=== PATIENT | male | born 1950 | race Caucasian/White ===

== ENCOUNTER 2016-12-29 11:44 | Inpatient (IN) | payer BC ==
[~2016-12-29] VITALS: Ht 167.6 cm; Wt 94.3 kg
[~2016-12-29 11:44] MED LIST: ALEVE 220MG220 MG PO; ALTOPREV10 MG PO; ASPIR-LOW81 MG PO; ASPIRIN 32325 MG/TAB PO; ASPIRIN 81M81 MG/TA2 PO; BRILINTA90 MG PO; BYSTOLIC5 MG PO; CARDI-OMEGA1000 MG PO; CHROMIUM PICO200 MCG PO; CINNAMON500 MG PO; CO Q-1050 MG PO; EFFIENT10 MG PO; FLAX SEED OIL1000 MG PO; GLUCOPHAGE500 MG/TAB PO; GLUCOSAMINE; GLUCOSAMINE & C1 CA2 PO; LIPITOR 80MG80 MG PO; LOPRESSOR 225 MG/TAB PO; LORTAB 5/500 501 TAB PO; MULTIPLE VITAMI1 CAP PO; MVI; NITROSTAT0.3 MG; NITROSTAT0.4 MG/TAB SL; PRILOSEC 20MG20 MG PO; PRINIVIL5 MG PO; VITAMIN D2000 I1 PO
[2017-01-26] VITALS (12 sets, daily range): BP systolic 121–148; BP diastolic 59–72; PULSE 76–96; TEMP 97.8–98.4
[2017-01-26] MEDS ORDERED: GLUCOPHAGE1000 MG PO (07:36)
[2017-01-26] MEDS ORDERED: ASPIRIN E.C. 8181 MG PO (07:37)
[2017-01-26] MEDS ORDERED: FLAX OIL1000 MG PO (07:38)
[2017-01-26] MEDS ORDERED: BRILINTA90 MG PO (07:40)
[2017-01-26] MEDS ORDERED: BYSTOLIC5 MG PO (07:41)
[2017-01-26] MEDS ORDERED: PRINIVIL5 MG PO (07:42)
[2017-01-26] MEDS ORDERED: VITAMIN D32000 IU PO (07:43)
[2017-01-26] MEDS ORDERED: MASON NATURAL100 MG PO (07:43)
[2017-01-26] MEDS ORDERED: GLUCOSAMINE & C1 CA1 PO (07:44)
[2017-01-26] MEDS ORDERED: PRILOSEC 20MG20 MG PO (07:44)
[2017-01-26] MEDS ORDERED: LIPITOR 40MG TA40 MG PO (07:45)
[2017-01-26] MEDS ORDERED: MASON NATURAL1200 MG PO (07:46)
[2017-01-26] MEDS ORDERED: NITROSTAT0.4 MG/TAB SL (07:47)
[2017-01-26] MEDS ORDERED: REVATIO20 MG PO (07:50)
[2017-01-26 18:18] LABS: HEMATOCRIT 42.1 % (42.0-52.0); HEMOGLOBIN 14.5 g/dl (13.5-18.0)
[2017-01-27] VITALS (7 sets, daily range): BP systolic 103–150; BP diastolic 55–79; PULSE 75–102; TEMP 98–98.8
[2017-01-27 07:35] LABS: CALCIUM 8.7 mg/dL (8.4-10.2); CREATININE, serum 0.81 mg/dL (0.66-1.25); POTASSIUM 4.3 mmol/L (3.4-5.0)
[2017-01-27 07:36] LABS: HEMATOCRIT 39.4 % (42.0-52.0); HEMOGLOBIN 13.4 g/dl (13.5-18.0)
[2017-01-28 05:43] VITALS: BP 143/90; PULSE 106; TEMP 98.6
[2017-01-28 09:33] VITALS: BP 148/90; PULSE 121; TEMP 97.9
[2017-01-28 12:02] LABS: HEMATOCRIT 43.4 % (42.0-52.0); HEMOGLOBIN 14.8 g/dl (13.5-18.0); MEAN CELL VOLUME 90 fl (80.0-100.0); MEAN CORPUSCULAR HEMOGLOBIN 31 pg (27.0-31.0); MEAN CORPUSCULAR HGB CONC 34 g/dl (33.0-37.0); MEAN PLATELET VOLUME 10.3 fl (7.4-10.4); PLATELET COUNT 249 K/mm3 (130-400); RED BLOOD COUNT 4.81 M/mm3 (4.20-5.60)
[2017-01-28 12:03] LABS: WHITE BLOOD COUNT 21.5 K/mm3 (4.8-10.8)
[2017-01-28 12:04] LABS: ADD PATHOLOGY DIFF REVIEW NO
[2017-01-28 12:25] LABS: CALCIUM 9.6 mg/dL (8.4-10.2); CREATININE, serum 0.68 mg/dL (0.66-1.25); POTASSIUM 4.1 mmol/L (3.4-5.0)
[2017-01-28 12:28] LABS: BAND 18 % (0-10); NEUTROPHILS 74 % (42.0-75.2); PLATELET ESTIMATE NORMAL (NORMAL); TOTAL CELLS COUNTED 100
[2017-01-28 14:13] VITALS: BP 124/69; PULSE 92; TEMP 98
[2017-01-28 18:39] VITALS: BP 118/68; PULSE 85; TEMP 98.5
[2017-01-28 22:23] VITALS: BP 127/71; PULSE 98; TEMP 99.5
[2017-01-29] VITALS (295 sets, daily range): BP systolic 73–110; BP diastolic 44–75; PULSE 100–134; TEMP 97–98.8; O2SAT 89–100
[2017-01-29 06:53] LABS: HEMATOCRIT 44.9 % (42.0-52.0); HEMOGLOBIN 15.5 g/dl (13.5-18.0); MEAN CELL VOLUME 89 fl (80.0-100.0); MEAN CORPUSCULAR HEMOGLOBIN 31 pg (27.0-31.0); MEAN CORPUSCULAR HGB CONC 35 g/dl (33.0-37.0); MEAN PLATELET VOLUME 10.6 fl (7.4-10.4); PLATELET COUNT 308 K/mm3 (130-400); RED BLOOD COUNT 5.02 M/mm3 (4.20-5.60); WHITE BLOOD COUNT 5.5 K/mm3 (4.8-10.8)
[2017-01-29 06:58] LABS: CALCIUM 9.2 mg/dL (8.4-10.2); CREATININE, serum 1.1 mg/dL (0.66-1.25)
[2017-01-29 07:56] LABS: BAND 49 % (0-10); METAMYELOCYTE 4 % (0-0); NEUTROPHILS 33 % (42.0-75.2); PLATELET ESTIMATE NORMAL (NORMAL); TOTAL CELLS COUNTED 100
[2017-01-29 08:01] LABS: DOHLE BODIES PRESENT
[2017-01-29 08:02] LABS: TOXIC GRANULATION PRESENT
[2017-01-29 08:05] LABS: ADD PATHOLOGY DIFF REVIEW YES
[2017-01-29 15:35] LABS: HYALINE CAST >12 /lpf; PH 5 (5-8); SQUAMOUS EPITHELIAL 0-2 /hpf; URINE APPEARANCE Hazy; URINE BACTERIA None Seen /hpf; URINE BILIRUBIN Negative (NEGATIVE); URINE BLOOD Negative (NEGATIVE); URINE COLOR Amber; URINE GLUCOSE 1+ (NEGATIVE); URINE KETONE Trace (NEGATIVE); URINE UROBILINOGEN >=4.0 mg/dL (NEGATIVE)
[2017-01-29 15:38] LABS: HEMATOCRIT 43.3 % (42.0-52.0); HEMOGLOBIN 14.4 g/dl (13.5-18.0)
[2017-01-29 18:44] LABS: VENOUS BLOOD GAS BE -13.7 (-4-4); VENOUS BLOOD GAS SAO2 82.3 % (60-80)
[2017-01-29 18:45] LABS: VENOUS BLOOD GAS SITE CENTRAL LINE
[2017-01-29 19:04] LABS: ARTERIAL BLD GAS TCO2 CT 18.1; ARTERIAL BLOOD GAS BASE EXCESS -13.4 (-2-2); ARTERIAL BLOOD GAS HCO3 16.4 meq/L (22-26); ARTERIAL BLOOD GAS PO2 90.9 mmHg (80-100); ATS? NO
[2017-01-29 19:32] LABS: HEMATOCRIT 39.1 % (42.0-52.0); MEAN CELL VOLUME 92 fl (80.0-100.0); MEAN CORPUSCULAR HEMOGLOBIN 31 pg (27.0-31.0); MEAN CORPUSCULAR HGB CONC 33 g/dl (33.0-37.0); MEAN PLATELET VOLUME 10.1 fl (7.4-10.4); PLATELET COUNT 285 K/mm3 (130-400); RED BLOOD COUNT 4.23 M/mm3 (4.20-5.60); REDCELL DISTRIBUTION WIDTH-CV 13.2 % (11.5-14.5); WHITE BLOOD COUNT 5.1 K/mm3 (4.8-10.8)
[2017-01-29 19:48] LABS: ADJUSTED CALCIUM 7.8 mg/dL (8.4-10.2); ALBUMIN 2.1 gm/dL (3.5-5.0); BILIRUBIN,TOTAL 1.2 mg/dL (0.0-1.0); CALCIUM 6.3 mg/dL (8.4-10.2); CREATININE, serum 1.88 mg/dL (0.66-1.25); POTASSIUM 4.2 mmol/L (3.4-5.0); TOTAL PROTEIN 4.6 gm/dL (6.4-8.2)
[2017-01-29 20:08] LABS: BAND 45 % (0-10); METAMYELOCYTE 2 % (0-0); NEUTROPHILS 16 % (42.0-75.2); TOTAL CELLS COUNTED 100
[2017-01-29 20:09] LABS: PLATELET ESTIMATE NORMAL (NORMAL)
[2017-01-29 20:12] LABS: ARTERIAL BLOOD GAS PO2 73.6 mmHg (80-100); ARTERIAL BLOOD GAS pH 7.31 (7.35-7.45)
[2017-01-29 20:13] LABS: ARTERIAL BLOOD GAS BASE EXCESS -10.6 (-2-2); ARTERIAL BLOOD GAS HCO3 14.2 meq/L (22-26); ATS? NO
[2017-01-29 22:20] LABS: ARTERIAL BLOOD GAS HCO3 13.8 meq/L (22-26); ARTERIAL BLOOD GAS PO2 148.2 mmHg (80-100); ARTERIAL BLOOD GAS pH 7.36 (7.35-7.45)
[2017-01-29 22:21] LABS: ARTERIAL BLD GAS O2 SATURATION 98.4 % (92-100); ARTERIAL BLD GAS TCO2 CT 14.5; ARTERIAL BLOOD GAS BASE EXCESS -9.9 (-2-2); ATS? NO
[2017-01-29 23:05] LABS: VENOUS BLOOD GAS BE -8.8 (-4-4); VENOUS BLOOD GAS SAO2 59.1 % (60-80); VENOUS BLOOD GAS SITE CENTRAL LINE
[2017-01-30] VITALS (642 sets, daily range): BP systolic 83–125; BP diastolic 36–74; PULSE 103–134; TEMP 97–99.8; O2SAT 92–100
[2017-01-30 03:19] LABS: VENOUS BLOOD GAS BE -6.1 (-4-4); VENOUS BLOOD GAS SAO2 64.3 % (60-80); VENOUS BLOOD GAS SITE CENTRAL LINE
[2017-01-30 05:02] LABS: ARTERIAL BLD GAS O2 SATURATION 97.9 % (92-100); ARTERIAL BLD GAS TCO2 CT 18.7; ARTERIAL BLOOD GAS BASE EXCESS -5.4 (-2-2); ARTERIAL BLOOD GAS HCO3 17.8 meq/L (22-26); ARTERIAL BLOOD GAS PO2 118.7 mmHg (80-100); ARTERIAL BLOOD GAS pH 7.42 (7.35-7.45)
[2017-01-30 05:03] LABS: ATS? NO
[2017-01-30 05:45] LABS: HEMOGLOBIN 12.2 g/dl (13.5-18.0); MEAN CELL VOLUME 89 fl (80.0-100.0); MEAN CORPUSCULAR HEMOGLOBIN 31 pg (27.0-31.0); MEAN CORPUSCULAR HGB CONC 35 g/dl (33.0-37.0); MEAN PLATELET VOLUME 10.3 fl (7.4-10.4); PLATELET COUNT 262 K/mm3 (130-400); RED BLOOD COUNT 3.96 M/mm3 (4.20-5.60); REDCELL DISTRIBUTION WIDTH-CV 13.2 % (11.5-14.5); WHITE BLOOD COUNT 5.9 K/mm3 (4.8-10.8)
[2017-01-30 05:47] LABS: HEMATOCRIT 35.1 % (42.0-52.0)
[2017-01-30 05:48] LABS: ADD PATHOLOGY DIFF REVIEW NO
[2017-01-30 05:58] LABS: ADJUSTED CALCIUM 8.4 mg/dL (8.4-10.2); ALANINE AMINOTRANSFERASE 75 U/L (21-72); ALBUMIN 2.7 gm/dL (3.5-5.0); ALKALINE PHOSPHATASE 75 U/L (50-136); ANION GAP 18 mmol/L (7-16); BILIRUBIN,TOTAL 1.1 mg/dL (0.0-1.0); BLOOD UREA NITROGEN 32 mg/dL (9-20); CALCIUM 7.4 mg/dL (8.4-10.2); CARBON DIOXIDE 20 mmol/L (22-30); CHLORIDE 104 mmol/L (98-107); GLUCOSE 175 mg/dL (74-106); MAGNESIUM 1.4 mg/dL (1.6-2.3); PHOSPHOROUS 3.2 mg/dL (2.5-4.5); POTASSIUM 3.6 mmol/L (3.4-5.0); SODIUM 142 mmol/L (137-145)
[2017-01-30 06:05] LABS: B-TYPE NATRIURETIC PEPTIDE 4620 pg/mL (0-125)
[2017-01-30 06:13] LABS: BAND 41 % (0-10); EOSINOPHIL 1 % (0-4); NEUTROPHILS 27 % (42.0-75.2); TOTAL CELLS COUNTED 100
[2017-01-30 08:51] LABS: INR 1.7 (0.8-3.0); PROTHROMBIN TIME 18.6 SECONDS (9.7-12.8)
[2017-01-30 10:01] LABS: VENOUS BLOOD GAS BE -2.2 (-4-4); VENOUS BLOOD GAS SAO2 75.2 % (60-80); VENOUS BLOOD GAS SITE CENTRAL LINE
[2017-01-30 12:05] LABS: VENOUS BLOOD GAS BE -8.7 (-4-4); VENOUS BLOOD GAS SAO2 74.8 % (60-80)
[2017-01-30 12:06] LABS: VENOUS BLOOD GAS SITE CENTRAL LINE
[2017-01-30 13:31] LABS: TRIGLYCERIDE 67 mg/dL
[2017-01-30 13:35] LABS: CHOLESTEROL < 50 mg/dL (120-200)
[2017-01-30 19:30] LABS: VENOUS BLOOD GAS BE -2.9 (-4-4); VENOUS BLOOD GAS SAO2 73.6 % (60-80)
[2017-01-30 19:31] LABS: VENOUS BLOOD GAS SITE CENTRAL LINE
[2017-01-30 19:32] LABS: BASO % 0.6 % (0.0-2.0); EOS % 0.3 % (0-4.0); GRAN # 5.3 (1.4-6.5); GRAN % 79.6 % (42.2-75.2); LYMPH # 0.7 (1.2-3.4); MEAN CELL VOLUME 90 fl (80.0-100.0); MEAN CORPUSCULAR HGB CONC 34 g/dl (33.0-37.0); MEAN PLATELET VOLUME 10.1 fl (7.4-10.4); MONO # 0.5 (0.1-0.6); PLATELET COUNT 213 K/mm3 (130-400); RED BLOOD COUNT 3.34 M/mm3 (4.20-5.60); REDCELL DISTRIBUTION WIDTH-CV 13.3 % (11.5-14.5); WHITE BLOOD COUNT 6.6 K/mm3 (4.8-10.8)
[2017-01-30 19:33] LABS: HEMATOCRIT 29.9 % (42.0-52.0); HEMOGLOBIN 10.2 g/dl (13.5-18.0); MEAN CORPUSCULAR HEMOGLOBIN 31 pg (27.0-31.0)
[2017-01-30 19:43] LABS: ALBUMIN 2.8 gm/dL (3.5-5.0); BILIRUBIN,TOTAL 1.2 mg/dL (0.0-1.0); CREATININE, serum 1.47 mg/dL (0.66-1.25); POTASSIUM 3.5 mmol/L (3.4-5.0); TOTAL PROTEIN 5.1 gm/dL (6.4-8.2)
[2017-01-31] VITALS (813 sets, daily range): BP systolic 85–154; BP diastolic 49–83; PULSE 90–158; TEMP 38; O2SAT 70–100
[2017-01-31 04:09] LABS: ARTERIAL BLD GAS O2 SATURATION 93.9 % (92-100); ARTERIAL BLD GAS TCO2 CT 23.6; ARTERIAL BLOOD GAS HCO3 22.3 meq/L (22-26); ARTERIAL BLOOD GAS PHT 7.35 C (7.35-7.45); ARTERIAL BLOOD GAS PO2 76.6 mmHg (80-100); ARTERIAL BLOOD GAS PO2T 76.6 (80-100); ARTERIAL BLOOD GAS pH 7.35 (7.35-7.45); OXYHEMOGLOBIN 92.9 %
[2017-01-31 04:22] LABS: ALLEN TEST NO; ATS? NO
[2017-01-31 05:39] LABS: MEAN CELL VOLUME 90 fl (80.0-100.0); MEAN CORPUSCULAR HGB CONC 34 g/dl (33.0-37.0); MEAN PLATELET VOLUME 10.5 fl (7.4-10.4); PLATELET COUNT 219 K/mm3 (130-400); RED BLOOD COUNT 3.11 M/mm3 (4.20-5.60); REDCELL DISTRIBUTION WIDTH-CV 13.7 % (11.5-14.5); WHITE BLOOD COUNT 10.2 K/mm3 (4.8-10.8)
[2017-01-31 05:47] LABS: ADD PATHOLOGY DIFF REVIEW NO; HEMATOCRIT 28.1 % (42.0-52.0); HEMOGLOBIN 9.5 g/dl (13.5-18.0); MEAN CORPUSCULAR HEMOGLOBIN 31 pg (27.0-31.0)
[2017-01-31 05:51] LABS: MAGNESIUM 1.9 mg/dL (1.6-2.3); PHOSPHOROUS 2.9 mg/dL (2.5-4.5)
[2017-01-31 05:52] LABS: INR 1.4 (0.8-3.0); PROTHROMBIN TIME 15.6 SECONDS (9.7-12.8)
[2017-01-31 06:25] LABS: BAND 19 % (0-10); NEUTROPHILS 71 % (42.0-75.2); TOTAL CELLS COUNTED 100
[2017-01-31 08:17] LABS: VENOUS BLOOD GAS BE -2.6 (-4-4); VENOUS BLOOD GAS SAO2 72.1 % (60-80); VENOUS BLOOD GAS SITE CENTRAL LINE
[2017-01-31 08:30] LABS: ADJUSTED CALCIUM 7.9 mg/dL (8.4-10.2); CALCIUM 7.1 mg/dL (8.4-10.2); CREATININE, serum 1.95 mg/dL (0.66-1.25); POTASSIUM 3.5 mmol/L (3.4-5.0); TOTAL PROTEIN 5.2 gm/dL (6.4-8.2)
[2017-01-31 20:38] LABS: VENOUS BLOOD GAS BE -2.1 (-4-4); VENOUS BLOOD GAS SAO2 68.3 % (60-80)
[2017-01-31 20:39] LABS: VENOUS BLOOD GAS SITE CENTRAL LINE
[2017-02-01] VITALS (1257 sets, daily range): BP systolic 110–166; BP diastolic 52–90; PULSE 88–100; TEMP 98.4–100.4; O2SAT 65–100
[2017-02-01 04:07] LABS: ARTERIAL BLD GAS O2 SATURATION 89.4 % (92-100); ARTERIAL BLD GAS TCO2 CT 20.3; ARTERIAL BLOOD GAS BASE EXCESS -4.8 (-2-2); ARTERIAL BLOOD GAS HCO3 19.3 meq/L (22-26); ARTERIAL BLOOD GAS PO2 61.3 mmHg (80-100); ARTERIAL BLOOD GAS PO2T 61.3 (80-100); OXYHEMOGLOBIN 88.4 %
[2017-02-01 04:09] LABS: ALLEN TEST NO; ATS? NO
[2017-02-01 04:38] LABS: MEAN CELL VOLUME 89 fl (80.0-100.0); MEAN CORPUSCULAR HGB CONC 34 g/dl (33.0-37.0); MEAN PLATELET VOLUME 10.5 fl (7.4-10.4); PLATELET COUNT 206 K/mm3 (130-400); RED BLOOD COUNT 2.88 M/mm3 (4.20-5.60); WHITE BLOOD COUNT 14.1 K/mm3 (4.8-10.8)
[2017-02-01 04:58] LABS: ADJUSTED CALCIUM 8.4 mg/dL (8.4-10.2); ALBUMIN 3.4 gm/dL (3.5-5.0); BILIRUBIN,TOTAL 0.9 mg/dL (0.0-1.0); CALCIUM 7.9 mg/dL (8.4-10.2); CREATININE, serum 1.25 mg/dL (0.66-1.25); MAGNESIUM 2.5 mg/dL (1.6-2.3); PHOSPHOROUS 1.4 mg/dL (2.5-4.5); TOTAL PROTEIN 5.6 gm/dL (6.4-8.2)
[2017-02-01 05:14] LABS: HEMATOCRIT 25.7 % (42.0-52.0); HEMOGLOBIN 8.8 g/dl (13.5-18.0); MEAN CORPUSCULAR HEMOGLOBIN 31 pg (27.0-31.0)
[2017-02-01 05:15] LABS: ADD PATHOLOGY DIFF REVIEW NO
[2017-02-01 05:17] LABS: BAND 39 % (0-10); EOSINOPHIL 1 % (0-4); NEUTROPHILS 47 % (42.0-75.2); TOTAL CELLS COUNTED 100
[2017-02-01 05:23] LABS: INR 1.3 (0.8-3.0)
[2017-02-01 08:46] LABS: PATHOLOGY DIFF REVIEW OK
[2017-02-01 08:52] LABS: ARTERIAL BLD GAS O2 SATURATION 91.4 % (92-100); ARTERIAL BLD GAS TCO2 CT 23.7; ARTERIAL BLOOD GAS BASE EXCESS -2.1 (-2-2); ARTERIAL BLOOD GAS HCO3 22.6 meq/L (22-26); ARTERIAL BLOOD GAS PHT 7.38 C (7.35-7.45); ARTERIAL BLOOD GAS PO2 62.1 mmHg (80-100); ARTERIAL BLOOD GAS PO2T 65.6 (80-100); ARTERIAL BLOOD GAS pH 7.39 (7.35-7.45); OXYHEMOGLOBIN 90.3 %
[2017-02-01 08:53] LABS: VENOUS BLOOD GAS BE -1.9 (-4-4); VENOUS BLOOD GAS SAO2 64.8 % (60-80)
[2017-02-01 08:54] LABS: ATS? NO; VENOUS BLOOD GAS SITE CENTRAL LINE
[2017-02-01 14:13] LABS: ARTERIAL BLD GAS O2 SATURATION 95.4 % (92-100); ARTERIAL BLD GAS TCO2 CT 22.5; ARTERIAL BLOOD GAS BASE EXCESS -3.1 (-2-2); ARTERIAL BLOOD GAS HCO3 21.4 meq/L (22-26); ARTERIAL BLOOD GAS PHT 7.39 C (7.35-7.45); ARTERIAL BLOOD GAS PO2 87.2 mmHg (80-100); ARTERIAL BLOOD GAS PO2T 87.2 (80-100); ARTERIAL BLOOD GAS pH 7.39 (7.35-7.45); ATS? NO; OXYHEMOGLOBIN 94.5 %
[2017-02-02] VITALS (1215 sets, daily range): BP systolic 120–165; BP diastolic 42–99; PULSE 81–104; TEMP 98.5–99.3; O2SAT 91–100
[2017-02-02 05:09] LABS: ARTERIAL BLD GAS O2 SATURATION 95.5 % (92-100); ARTERIAL BLD GAS TCO2 CT 24.1; ARTERIAL BLOOD GAS BASE EXCESS -1.4 (-2-2); ARTERIAL BLOOD GAS PO2 84.7 mmHg (80-100); ARTERIAL BLOOD GAS pH 7.41 (7.35-7.45)
[2017-02-02 05:10] LABS: ATS? NO
[2017-02-02 06:22] LABS: MEAN CELL VOLUME 90 fl (80.0-100.0); MEAN CORPUSCULAR HGB CONC 34 g/dl (33.0-37.0); MEAN PLATELET VOLUME 10.4 fl (7.4-10.4); PLATELET COUNT 255 K/mm3 (130-400); RED BLOOD COUNT 3.01 M/mm3 (4.20-5.60); REDCELL DISTRIBUTION WIDTH-CV 14.6 % (11.5-14.5); WHITE BLOOD COUNT 17.9 K/mm3 (4.8-10.8)
[2017-02-02 06:25] LABS: HEMOGLOBIN 9.2 g/dl (13.5-18.0); MEAN CORPUSCULAR HEMOGLOBIN 31 pg (27.0-31.0)
[2017-02-02 06:35] LABS: ADJUSTED CALCIUM 8.3 mg/dL (8.4-10.2); ALBUMIN 3.7 gm/dL (3.5-5.0); BILIRUBIN,TOTAL 0.9 mg/dL (0.0-1.0); CALCIUM 8.1 mg/dL (8.4-10.2); CREATININE, serum 0.95 mg/dL (0.66-1.25); MAGNESIUM 2.5 mg/dL (1.6-2.3); PHOSPHOROUS 1.9 mg/dL (2.5-4.5); POTASSIUM 3.1 mmol/L (3.4-5.0); TOTAL PROTEIN 5.9 gm/dL (6.4-8.2)
[2017-02-02 07:30] LABS: BAND 32 % (0-10); EOSINOPHIL 5 % (0-4); METAMYELOCYTE 8 % (0-0); NEUTROPHILS 34 % (42.0-75.2); PLATELET ESTIMATE NORMAL (NORMAL); TOTAL CELLS COUNTED 100; TOXIC GRANULATION PRESENT
[2017-02-02 07:32] LABS: ADD PATHOLOGY DIFF REVIEW YES
[2017-02-02 08:10] LABS: PATHOLOGY DIFF REVIEW OK
[2017-02-02 19:27] LABS: ARTERIAL BLD GAS O2 SATURATION 95.6 % (92-100); ARTERIAL BLD GAS TCO2 CT 24.3; ARTERIAL BLOOD GAS BASE EXCESS -1.3 (-2-2); ARTERIAL BLOOD GAS HCO3 23.1 meq/L (22-26); ARTERIAL BLOOD GAS pH 7.41 (7.35-7.45); ATS? NO
[2017-02-03] VITALS (1022 sets, daily range): BP systolic 141–155; BP diastolic 74–84; PULSE 92–103; TEMP 97.5–99.7; O2SAT 48–100
[2017-02-03 05:20] LABS: ALLEN TEST YES; ALLENS TEST RESULT PASS; ARTERIAL BLD GAS O2 SATURATION 94.3 % (92-100); ARTERIAL BLD GAS TCO2 CT 25.7; ARTERIAL BLOOD GAS BASE EXCESS 0.2 (-2-2); ARTERIAL BLOOD GAS HCO3 24.5 meq/L (22-26); ARTERIAL BLOOD GAS pH 7.42 (7.35-7.45); ATS? YES
[2017-02-03 07:06] LABS: MEAN CELL VOLUME 90 fl (80.0-100.0); MEAN CORPUSCULAR HGB CONC 33 g/dl (33.0-37.0); PLATELET COUNT 286 K/mm3 (130-400); RED BLOOD COUNT 3.14 M/mm3 (4.20-5.60)
[2017-02-03 07:13] LABS: ADD PATHOLOGY DIFF REVIEW NO; HEMATOCRIT 28.2 % (42.0-52.0); HEMOGLOBIN 9.4 g/dl (13.5-18.0); MEAN CORPUSCULAR HEMOGLOBIN 30 pg (27.0-31.0)
[2017-02-03 07:18] LABS: ANION GAP 12 mmol/L (7-16); BLOOD UREA NITROGEN 46 mg/dL (9-20); CALCIUM 8.3 mg/dL (8.4-10.2); CARBON DIOXIDE 26 mmol/L (22-30); CHLORIDE 114 mmol/L (98-107); CREATININE, serum 0.86 mg/dL (0.66-1.25); GLUCOSE 184 mg/dL (74-106); POTASSIUM 3.4 mmol/L (3.4-5.0); SODIUM 152 mmol/L (137-145)
[2017-02-03 07:35] LABS: MAGNESIUM 2.1 mg/dL (1.6-2.3); PHOSPHOROUS 2.3 mg/dL (2.5-4.5)
[2017-02-03 07:52] LABS: TRIGLYCERIDE 133 mg/dL
[2017-02-03 08:42] LABS: BAND 47 % (0-10); EOSINOPHIL 6 % (0-4); METAMYELOCYTE 5 % (0-0); NEUTROPHILS 23 % (42.0-75.2); TOTAL CELLS COUNTED 100
[2017-02-03 08:43] LABS: PLATELET ESTIMATE NORMAL (NORMAL); TOXIC GRANULATION PRESENT
[2017-02-03 09:43] LABS: CHOLESTEROL < 50 mg/dL (120-200)
[2017-02-04] VITALS (694 sets, daily range): BP systolic 148–164; BP diastolic 69–88; PULSE 98–110; TEMP 99.1–100.8; O2SAT 67–100
[2017-02-04 05:06] LABS: MEAN CELL VOLUME 91 fl (80.0-100.0); MEAN CORPUSCULAR HGB CONC 34 g/dl (33.0-37.0); MEAN PLATELET VOLUME 10.7 fl (7.4-10.4); PLATELET COUNT 323 K/mm3 (130-400); RED BLOOD COUNT 3.15 M/mm3 (4.20-5.60); REDCELL DISTRIBUTION WIDTH-CV 15.2 % (11.5-14.5)
[2017-02-04 05:10] LABS: HEMATOCRIT 28.6 % (42.0-52.0); HEMOGLOBIN 9.6 g/dl (13.5-18.0); MEAN CORPUSCULAR HEMOGLOBIN 30 pg (27.0-31.0); WHITE BLOOD COUNT 27.1 K/mm3 (4.8-10.8)
[2017-02-04 05:11] LABS: ADD PATHOLOGY DIFF REVIEW NO
[2017-02-04 05:26] LABS: BAND 35 % (0-10); CALCIUM 8.3 mg/dL (8.4-10.2); CREATININE, serum 0.78 mg/dL (0.66-1.25); NEUTROPHILS 32 % (42.0-75.2); PHOSPHOROUS 3.5 mg/dL (2.5-4.5); POTASSIUM 4.3 mmol/L (3.4-5.0); TOTAL CELLS COUNTED 100
[2017-02-04 05:35] LABS: ARTERIAL BLOOD GAS pH 7.44 (7.35-7.45)
[2017-02-04 05:36] LABS: ALLEN TEST YES; ALLENS TEST RESULT PASS; ARTERIAL BLD GAS O2 SATURATION 93.6 % (92-100); ARTERIAL BLD GAS TCO2 CT 23.5; ARTERIAL BLOOD GAS BASE EXCESS -1.2 (-2-2); ARTERIAL BLOOD GAS HCO3 22.5 meq/L (22-26); ATS? YES
[2017-02-04 10:36] LABS: ARTERIAL BLD GAS O2 SATURATION 94.3 % (92-100); ARTERIAL BLOOD GAS BASE EXCESS 0.5 (-2-2); ARTERIAL BLOOD GAS HCO3 23.9 meq/L (22-26); ARTERIAL BLOOD GAS PO2 75.1 mmHg (80-100); ARTERIAL BLOOD GAS pH 7.46 (7.35-7.45); OXYHEMOGLOBIN 93.5 %
[2017-02-04 10:37] LABS: ABG VENTILATOR TIDAL VOLUME 654 mL; ALLEN TEST YES; ALLENS TEST RESULT PASS; ATS? YES
[2017-02-04 16:34] LABS: 12 HR URINE TOTAL VOLUME 1.1 L
[2017-02-04 17:24] LABS: ALLEN TEST YES; ALLENS TEST RESULT PASS; ARTERIAL BLD GAS O2 SATURATION 93.4 % (92-100); ARTERIAL BLD GAS TCO2 CT 28.4; ARTERIAL BLOOD GAS BASE EXCESS 3.8 (-2-2); ARTERIAL BLOOD GAS HCO3 27.3 meq/L (22-26); ARTERIAL BLOOD GAS pH 7.49 (7.35-7.45); ATS? YES; OXYHEMOGLOBIN 92.6 %
[2017-02-04 19:28] LABS: CALCIUM 8.4 mg/dL (8.4-10.2); CREATININE, serum 0.82 mg/dL (0.66-1.25); MAGNESIUM 1.8 mg/dL (1.6-2.3); PHOSPHOROUS 3.5 mg/dL (2.5-4.5); POTASSIUM 4.4 mmol/L (3.4-5.0)
[2017-02-05] VITALS (731 sets, daily range): BP systolic 101–174; BP diastolic 47–87; PULSE 97–108; TEMP 99.7–99.9; O2SAT 70–100
[2017-02-05 05:51] LABS: MEAN CELL VOLUME 93 fl (80.0-100.0); MEAN CORPUSCULAR HGB CONC 33 g/dl (33.0-37.0); MEAN PLATELET VOLUME 10.9 fl (7.4-10.4); PLATELET COUNT 331 K/mm3 (130-400); RED BLOOD COUNT 2.95 M/mm3 (4.20-5.60); REDCELL DISTRIBUTION WIDTH-CV 15.1 % (11.5-14.5)
[2017-02-05 06:00] LABS: HEMATOCRIT 27.3 % (42.0-52.0); MEAN CORPUSCULAR HEMOGLOBIN 31 pg (27.0-31.0)
[2017-02-05 06:01] LABS: WHITE BLOOD COUNT 21.1 K/mm3 (4.8-10.8)
[2017-02-05 06:02] LABS: ADD PATHOLOGY DIFF REVIEW NO
[2017-02-05 06:05] LABS: BAND 37 % (0-10); EOSINOPHIL 1 % (0-4); METAMYELOCYTE 2 % (0-0); NEUTROPHILS 43 % (42.0-75.2); PLATELET ESTIMATE NORMAL (NORMAL); TOTAL CELLS COUNTED 100
[2017-02-05 06:06] LABS: ROULEAUX 1+
[2017-02-05 06:21] LABS: CALCIUM 8.4 mg/dL (8.4-10.2); CREATININE, serum 0.82 mg/dL (0.66-1.25); MAGNESIUM 1.8 mg/dL (1.6-2.3); PHOSPHOROUS 4.2 mg/dL (2.5-4.5); POTASSIUM 4.3 mmol/L (3.4-5.0)
[2017-02-06] VITALS (589 sets, daily range): BP systolic 102–178; BP diastolic 74–100; PULSE 105–113; TEMP 98.3–99.6; O2SAT 66–100
[2017-02-06 05:25] LABS: BASO # 0.1 (0.0-0.2); BASO % 0.4 % (0.0-2.0); EOS # 0.3 (0.0-0.7); EOS % 1.6 % (0-4.0); GRAN # 16.3 (1.4-6.5); GRAN % 75.1 % (42.2-75.2); LYMPH # 2.2 (1.2-3.4); LYMPH % 10.1 % (20.0-51.0); MEAN CELL VOLUME 93 fl (80.0-100.0); MEAN CORPUSCULAR HGB CONC 32 g/dl (33.0-37.0); MEAN PLATELET VOLUME 10.8 fl (7.4-10.4); MONO % 9.1 % (1.7-9.3); PLATELET COUNT 407 K/mm3 (130-400); RED BLOOD COUNT 3.07 M/mm3 (4.20-5.60)
[2017-02-06 05:33] LABS: HEMATOCRIT 28.4 % (42.0-52.0); HEMOGLOBIN 9.2 g/dl (13.5-18.0); MEAN CORPUSCULAR HEMOGLOBIN 30 pg (27.0-31.0); WHITE BLOOD COUNT 21.7 K/mm3 (4.8-10.8)
[2017-02-06 05:37] LABS: CALCIUM 8.4 mg/dL (8.4-10.2); CREATININE, serum 0.88 mg/dL (0.66-1.25); MAGNESIUM 1.8 mg/dL (1.6-2.3); PHOSPHOROUS 4.1 mg/dL (2.5-4.5)
[2017-02-06 16:28] LABS: ADJUSTED CALCIUM 9.5 mg/dL (8.4-10.2); ALBUMIN 2.9 gm/dL (3.5-5.0); CALCIUM 8.6 mg/dL (8.4-10.2); CREATININE, serum 0.85 mg/dL (0.66-1.25); POTASSIUM 3.9 mmol/L (3.4-5.0); TOTAL PROTEIN 6.3 gm/dL (6.4-8.2)
[2017-02-07] VITALS (15 sets, daily range): BP systolic 149–203; BP diastolic 60–102; PULSE 102–125; TEMP 97.3–99.7
[2017-02-07 07:08] LABS: MEAN CELL VOLUME 92 fl (80.0-100.0); MEAN CORPUSCULAR HGB CONC 33 g/dl (33.0-37.0); MEAN PLATELET VOLUME 11.2 fl (7.4-10.4); PLATELET COUNT 466 K/mm3 (130-400); RED BLOOD COUNT 3.19 M/mm3 (4.20-5.60); REDCELL DISTRIBUTION WIDTH-CV 14.8 % (11.5-14.5)
[2017-02-07 07:20] LABS: HEMATOCRIT 29.2 % (42.0-52.0); HEMOGLOBIN 9.5 g/dl (13.5-18.0); MEAN CORPUSCULAR HEMOGLOBIN 30 pg (27.0-31.0); WHITE BLOOD COUNT 24.2 K/mm3 (4.8-10.8)
[2017-02-07 08:40] LABS: ADJUSTED CALCIUM 9.6 mg/dL (8.4-10.2); BILIRUBIN,TOTAL 0.8 mg/dL (0.0-1.0); CALCIUM 8.8 mg/dL (8.4-10.2); CREATININE, serum 0.89 mg/dL (0.66-1.25); PHOSPHOROUS 3.9 mg/dL (2.5-4.5); POTASSIUM 3.7 mmol/L (3.4-5.0); TOTAL PROTEIN 6.5 gm/dL (6.4-8.2)
[2017-02-07 09:29] LABS: ARTERIAL BLD GAS TCO2 CT 29.2; ARTERIAL BLOOD GAS BASE EXCESS 4.5 (-2-2); ARTERIAL BLOOD GAS PHT 7.49 C (7.35-7.45); ARTERIAL BLOOD GAS pH 7.49 (7.35-7.45); OXYHEMOGLOBIN 93.2 %
[2017-02-07 09:30] LABS: ALLEN TEST YES; ALLENS TEST RESULT PASS; ATS? YES
[2017-02-07 16:30] LABS: ADJUSTED CALCIUM 9.4 mg/dL (8.4-10.2); ALBUMIN 2.7 gm/dL (3.5-5.0); BILIRUBIN,TOTAL 0.7 mg/dL (0.0-1.0); CALCIUM 8.4 mg/dL (8.4-10.2); CREATININE, serum 0.91 mg/dL (0.66-1.25); POTASSIUM 3.8 mmol/L (3.4-5.0)
[2017-02-08] VITALS (9 sets, daily range): BP systolic 134–172; BP diastolic 56–86; PULSE 96–105; TEMP 98.5–100.5
[2017-02-08 07:36] LABS: MEAN CELL VOLUME 92 fl (80.0-100.0); MEAN CORPUSCULAR HGB CONC 33 g/dl (33.0-37.0); PLATELET COUNT 455 K/mm3 (130-400); RED BLOOD COUNT 2.85 M/mm3 (4.20-5.60); REDCELL DISTRIBUTION WIDTH-CV 14.6 % (11.5-14.5); WHITE BLOOD COUNT 19.1 K/mm3 (4.8-10.8)
[2017-02-08 07:39] LABS: HEMATOCRIT 26.2 % (42.0-52.0); HEMOGLOBIN 8.6 g/dl (13.5-18.0); MEAN CORPUSCULAR HEMOGLOBIN 30 pg (27.0-31.0)
[2017-02-08 07:56] LABS: ADJUSTED CALCIUM 9.3 mg/dL (8.4-10.2); ALBUMIN 2.5 gm/dL (3.5-5.0); BILIRUBIN,TOTAL 0.7 mg/dL (0.0-1.0); CALCIUM 8.1 mg/dL (8.4-10.2); CREATININE, serum 0.96 mg/dL (0.66-1.25); PHOSPHOROUS 3.9 mg/dL (2.5-4.5); POTASSIUM 3.8 mmol/L (3.4-5.0); TOTAL PROTEIN 5.7 gm/dL (6.4-8.2)
[2017-02-09] VITALS (7 sets, daily range): BP systolic 150–173; BP diastolic 56–84; PULSE 81–111; TEMP 98.4–100.5
[2017-02-09 06:36] LABS: MEAN CELL VOLUME 91 fl (80.0-100.0); MEAN CORPUSCULAR HGB CONC 33 g/dl (33.0-37.0); MEAN PLATELET VOLUME 11.4 fl (7.4-10.4); PLATELET COUNT 451 K/mm3 (130-400); RED BLOOD COUNT 2.78 M/mm3 (4.20-5.60); REDCELL DISTRIBUTION WIDTH-CV 14.3 % (11.5-14.5); WHITE BLOOD COUNT 18.3 K/mm3 (4.8-10.8)
[2017-02-09 06:46] LABS: HEMATOCRIT 25.4 % (42.0-52.0); HEMOGLOBIN 8.3 g/dl (13.5-18.0); MEAN CORPUSCULAR HEMOGLOBIN 30 pg (27.0-31.0)
[2017-02-09 06:55] LABS: ADJUSTED CALCIUM 8.9 mg/dL (8.4-10.2); ALBUMIN 2.4 gm/dL (3.5-5.0); BILIRUBIN,TOTAL 0.5 mg/dL (0.0-1.0); C-REACTIVE PROTEIN 7.8 mg/dL (0.0-0.9); CALCIUM 7.6 mg/dL (8.4-10.2); CREATININE, serum 0.99 mg/dL (0.66-1.25); POTASSIUM 3.3 mmol/L (3.4-5.0); TOTAL PROTEIN 5.8 gm/dL (6.4-8.2)
[2017-02-10 01:47] VITALS: BP 147/60; PULSE 81; TEMP 98.5
[2017-02-10 05:08] VITALS: BP 154/61; PULSE 83; TEMP 98.4
[2017-02-10 07:14] LABS: MEAN CELL VOLUME 91 fl (80.0-100.0); MEAN CORPUSCULAR HGB CONC 34 g/dl (33.0-37.0); MEAN PLATELET VOLUME 11.3 fl (7.4-10.4); PLATELET COUNT 436 K/mm3 (130-400); REDCELL DISTRIBUTION WIDTH-CV 14.6 % (11.5-14.5); WHITE BLOOD COUNT 18.8 K/mm3 (4.8-10.8)
[2017-02-10 07:22] LABS: HEMATOCRIT 24.5 % (42.0-52.0); HEMOGLOBIN 8.2 g/dl (13.5-18.0); MEAN CORPUSCULAR HEMOGLOBIN 30 pg (27.0-31.0)
[2017-02-10 07:24] LABS: ADD PATHOLOGY DIFF REVIEW NO
[2017-02-10 07:27] LABS: ALANINE AMINOTRANSFERASE 47 U/L (21-72); ALBUMIN 2.3 gm/dL (3.5-5.0); ALKALINE PHOSPHATASE 77 U/L (50-136); ANION GAP 8 mmol/L (7-16); BILIRUBIN,TOTAL 0.5 mg/dL (0.0-1.0); BLOOD UREA NITROGEN 36 mg/dL (9-20); CALCIUM 7.6 mg/dL (8.4-10.2); CARBON DIOXIDE 29 mmol/L (22-30); CHLORIDE 105 mmol/L (98-107); CREATININE, serum 0.93 mg/dL (0.66-1.25); GLUCOSE 141 mg/dL (74-106); PHOSPHOROUS 3.8 mg/dL (2.5-4.5); POTASSIUM 3.4 mmol/L (3.4-5.0); SODIUM 142 mmol/L (137-145); TOTAL PROTEIN 5.7 gm/dL (6.4-8.2)
[2017-02-10 08:06] LABS: TRIGLYCERIDE 96 mg/dL
[2017-02-10 08:29] LABS: BAND 11 % (0-10); BASOPHIL 3 % (0-2); METAMYELOCYTE 1 % (0-0); NEUTROPHILS 70 % (42.0-75.2); TOTAL CELLS COUNTED 100
[2017-02-10 08:32] LABS: PLATELET ESTIMATE INCREASED (NORMAL)
[2017-02-10 08:33] LABS: HYPOCHROMIA 1+; POLYCHROMASIA 1+
[2017-02-10 09:16] LABS: CHOLESTEROL < 50 mg/dL (120-200)
[2017-02-10 09:33] VITALS: BP 165/76; PULSE 106; TEMP 98.9
[2017-02-10 13:49] VITALS: BP 170/83; PULSE 106; TEMP 98.1
[2017-02-10 17:14] VITALS: BP 154/62; PULSE 100; TEMP 98.4
[2017-02-10 21:52] VITALS: BP 151/67; PULSE 68; TEMP 99
[2017-02-11 02:15] VITALS: BP 141/57; PULSE 106; TEMP 99
[2017-02-11 04:53] VITALS: BP 130/66; PULSE 77; TEMP 97.2
[2017-02-11 07:37] LABS: CREATININE, serum 0.91 mg/dL (0.66-1.25); POTASSIUM 3.4 mmol/L (3.4-5.0)
[2017-02-11 09:18] VITALS: BP 133/65; PULSE 122; TEMP 98.4
[2017-02-11 13:50] VITALS: BP 133/63; PULSE 96; TEMP 99.3
[2017-02-11 18:06] VITALS: BP 142/59; PULSE 103; TEMP 100
[2017-02-11 22:00] VITALS: BP 131/58; PULSE 101; TEMP 100
[2017-02-12 01:07] VITALS: BP 137/63; PULSE 92; TEMP 98.6
[2017-02-12 04:14] VITALS: BP 121/60; PULSE 98; TEMP 97.7
[2017-02-12 08:13] LABS: MEAN CELL VOLUME 93 fl (80.0-100.0); MEAN CORPUSCULAR HGB CONC 33 g/dl (33.0-37.0); MEAN PLATELET VOLUME 11.1 fl (7.4-10.4); PLATELET COUNT 533 K/mm3 (130-400); RED BLOOD COUNT 2.75 M/mm3 (4.20-5.60); REDCELL DISTRIBUTION WIDTH-CV 14.4 % (11.5-14.5)
[2017-02-12 08:22] LABS: HEMATOCRIT 25.5 % (42.0-52.0); HEMOGLOBIN 8.3 g/dl (13.5-18.0); MEAN CORPUSCULAR HEMOGLOBIN 30 pg (27.0-31.0); WHITE BLOOD COUNT 21.9 K/mm3 (4.8-10.8)
[2017-02-12 09:17] VITALS: BP 148/56; PULSE 102
[2017-02-12 10:55] LABS: PH 5 (5-8); SQUAMOUS EPITHELIAL None Seen /hpf; URINE APPEARANCE Clear; URINE BACTERIA None Seen /hpf; URINE BILIRUBIN Negative (NEGATIVE); URINE BLOOD Negative (NEGATIVE); URINE COLOR Yellow; URINE GLUCOSE Negative (NEGATIVE); URINE KETONE Negative (NEGATIVE); URINE RBC 0-2 /hpf; URINE UROBILINOGEN Negative (NEGATIVE); URINE WBC 0-2 /hpf
[2017-02-12 13:47] VITALS: BP 135/56; PULSE 95; TEMP 98.5
[2017-02-12 17:33] VITALS: BP 128/63; PULSE 94; TEMP 98.1
[2017-02-12 22:00] VITALS: BP 142/53; PULSE 101; TEMP 99.1
[2017-02-13 02:46] VITALS: BP 147/66; PULSE 98; TEMP 98.4
[2017-02-13 06:00] VITALS: BP 159/56; PULSE 106; TEMP 98.6
[2017-02-13 07:55] LABS: MEAN CELL VOLUME 90 fl (80.0-100.0); MEAN CORPUSCULAR HGB CONC 34 g/dl (33.0-37.0); MEAN PLATELET VOLUME 11.1 fl (7.4-10.4); PLATELET COUNT 569 K/mm3 (130-400); RED BLOOD COUNT 2.68 M/mm3 (4.20-5.60); REDCELL DISTRIBUTION WIDTH-CV 14.1 % (11.5-14.5)
[2017-02-13 08:02] LABS: HEMOGLOBIN 8.1 g/dl (13.5-18.0); MEAN CORPUSCULAR HEMOGLOBIN 30 pg (27.0-31.0); WHITE BLOOD COUNT 20.2 K/mm3 (4.8-10.8)
[2017-02-13 08:03] LABS: ADD PATHOLOGY DIFF REVIEW NO
[2017-02-13 08:24] LABS: CALCIUM 7.8 mg/dL (8.4-10.2); CREATININE, serum 0.92 mg/dL (0.66-1.25); MAGNESIUM 1.7 mg/dL (1.6-2.3); PHOSPHOROUS 4.1 mg/dL (2.5-4.5)
[2017-02-13 08:26] LABS: POTASSIUM 2.8 mmol/L (3.4-5.0)
[2017-02-13 09:08] LABS: BAND 44 % (0-10); BASOPHIL 1 % (0-2); EOSINOPHIL 2 % (0-4); METAMYELOCYTE 1 % (0-0); NEUTROPHILS 36 % (42.0-75.2); PLATELET ESTIMATE INCREASED (NORMAL); TOTAL CELLS COUNTED 100
[2017-02-13 10:25] VITALS: BP 127/55; PULSE 111; TEMP 99.5
[2017-02-13 14:50] VITALS: BP 122/53; PULSE 101; TEMP 98.2
[2017-02-13 17:41] VITALS: BP 130/54; PULSE 93; TEMP 97.3
[2017-02-13 22:00] VITALS: BP 116/54; PULSE 101; TEMP 98.6
[2017-02-14 01:32] VITALS: BP 144/72; PULSE 100; TEMP 98.4
[2017-02-14 05:04] VITALS: BP 141/67; PULSE 108; TEMP 98.9
[2017-02-14 08:13] LABS: MEAN CELL VOLUME 90 fl (80.0-100.0); MEAN CORPUSCULAR HGB CONC 33 g/dl (33.0-37.0); PLATELET COUNT 612 K/mm3 (130-400); RED BLOOD COUNT 2.61 M/mm3 (4.20-5.60); REDCELL DISTRIBUTION WIDTH-CV 14.1 % (11.5-14.5); WHITE BLOOD COUNT 18.6 K/mm3 (4.8-10.8)
[2017-02-14 08:26] LABS: CALCIUM 8.2 mg/dL (8.4-10.2); CREATININE, serum 1.01 mg/dL (0.66-1.25)
[2017-02-14 08:27] LABS: HEMATOCRIT 23.5 % (42.0-52.0); HEMOGLOBIN 7.8 g/dl (13.5-18.0); MEAN CORPUSCULAR HEMOGLOBIN 30 pg (27.0-31.0)
[2017-02-14 08:38] LABS: POTASSIUM 2.8 mmol/L (3.4-5.0)
[2017-02-14 09:07] VITALS: BP 154/73; PULSE 108; TEMP 98.5
[2017-02-14 14:12] VITALS: BP 167/74; PULSE 106; TEMP 98.3
[2017-02-14 17:37] VITALS: BP 135/62; PULSE 100; TEMP 98.1
[2017-02-14 22:00] VITALS: BP 135/59; PULSE 100; TEMP 98.2
[2017-02-15 00:32] VITALS: BP 122/67; PULSE 99; TEMP 98.8
[2017-02-15 06:00] VITALS: BP 158/65; PULSE 107; TEMP 98.6
[2017-02-15 07:45] LABS: MEAN CELL VOLUME 91 fl (80.0-100.0); MEAN CORPUSCULAR HGB CONC 32 g/dl (33.0-37.0); MEAN PLATELET VOLUME 10.6 fl (7.4-10.4); PLATELET COUNT 654 K/mm3 (130-400); RED BLOOD COUNT 2.72 M/mm3 (4.20-5.60); WHITE BLOOD COUNT 17.8 K/mm3 (4.8-10.8)
[2017-02-15 07:48] LABS: HEMATOCRIT 24.7 % (42.0-52.0); HEMOGLOBIN 7.9 g/dl (13.5-18.0); MEAN CORPUSCULAR HEMOGLOBIN 29 pg (27.0-31.0)
[2017-02-15 08:08] LABS: CALCIUM 8.5 mg/dL (8.4-10.2); CREATININE, serum 0.97 mg/dL (0.66-1.25)
[2017-02-15 09:35] VITALS: BP 136/54; PULSE 99; TEMP 98.3
[2017-02-15 13:23] VITALS: BP 137/63; PULSE 92; TEMP 98.1
[2017-02-15 17:50] VITALS: BP 134/63; PULSE 89; TEMP 98.6
[2017-02-15 21:54] VITALS: BP 146/64; PULSE 103; TEMP 98.4
[2017-02-16 02:31] VITALS: BP 135/59; PULSE 78; TEMP 98.3
[2017-02-16 05:49] VITALS: BP 156/81; PULSE 103; TEMP 98.4
[2017-02-16 07:24] LABS: MEAN CELL VOLUME 92 fl (80.0-100.0); MEAN CORPUSCULAR HGB CONC 32 g/dl (33.0-37.0); MEAN PLATELET VOLUME 10.2 fl (7.4-10.4); PLATELET COUNT 628 K/mm3 (130-400); RED BLOOD COUNT 2.58 M/mm3 (4.20-5.60); REDCELL DISTRIBUTION WIDTH-CV 13.8 % (11.5-14.5); WHITE BLOOD COUNT 15.7 K/mm3 (4.8-10.8)
[2017-02-16 07:30] LABS: HEMATOCRIT 23.7 % (42.0-52.0); HEMOGLOBIN 7.6 g/dl (13.5-18.0); MEAN CORPUSCULAR HEMOGLOBIN 29 pg (27.0-31.0)
[2017-02-16 07:39] LABS: CALCIUM 7.7 mg/dL (8.4-10.2); CREATININE, serum 0.82 mg/dL (0.66-1.25); POTASSIUM 3.5 mmol/L (3.4-5.0)
[2017-02-16 09:32] VITALS: BP 130/83; PULSE 105; TEMP 98.1
[2017-02-16 13:42] VITALS: BP 143/69; PULSE 91; TEMP 98.2
[2017-02-16 17:05] VITALS: BP 129/61; PULSE 95; TEMP 98.6
[2017-02-16 22:07] VITALS: BP 142/63; PULSE 57; TEMP 97.9
[2017-02-17 02:20] VITALS: BP 145/59; PULSE 81; TEMP 98.2
[2017-02-17 05:03] VITALS: BP 165/62; PULSE 103; TEMP 98.4
[2017-02-17 07:28] LABS: MEAN CELL VOLUME 90 fl (80.0-100.0); MEAN CORPUSCULAR HGB CONC 33 g/dl (33.0-37.0); MEAN PLATELET VOLUME 10.1 fl (7.4-10.4); PLATELET COUNT 620 K/mm3 (130-400); RED BLOOD COUNT 2.67 M/mm3 (4.20-5.60); REDCELL DISTRIBUTION WIDTH-CV 13.9 % (11.5-14.5); WHITE BLOOD COUNT 17.4 K/mm3 (4.8-10.8)
[2017-02-17 07:42] LABS: ADD PATHOLOGY DIFF REVIEW NO; HEMATOCRIT 24.1 % (42.0-52.0); HEMOGLOBIN 7.9 g/dl (13.5-18.0); MEAN CORPUSCULAR HEMOGLOBIN 30 pg (27.0-31.0)
[2017-02-17 07:45] LABS: CALCIUM 7.9 mg/dL (8.4-10.2); CREATININE, serum 0.82 mg/dL (0.66-1.25); POTASSIUM 3.7 mmol/L (3.4-5.0)
[2017-02-17 08:51] LABS: BAND 24 % (0-10); EOSINOPHIL 1 % (0-4); METAMYELOCYTE 1 % (0-0); NEUTROPHILS 54 % (42.0-75.2); PLATELET ESTIMATE INCREASED (NORMAL); POLYCHROMASIA 1+; TOTAL CELLS COUNTED 100
[2017-02-17 10:17] VITALS: BP 125/89; PULSE 93; TEMP 98.8
[2017-02-17 13:24] VITALS: BP 109/63; PULSE 98; TEMP 98.5
[2017-02-17 16:59] VITALS: BP 135/67; PULSE 98; TEMP 98.8
[2017-02-17 21:35] VITALS: BP 126/64; PULSE 106; TEMP 98.4
[2017-02-18 02:09] VITALS: BP 126/69; PULSE 95; TEMP 98.5
[2017-02-18 06:35] VITALS: BP 135/73; PULSE 106; TEMP 97.5
[2017-02-18 09:11] VITALS: BP 148/69; PULSE 58; TEMP 97.8
[2017-02-18 09:32] VITALS: BP 123/64; PULSE 121; TEMP 99.5
[2017-02-18 11:44] VITALS: BP 123/64; PULSE 121; TEMP 99.5
[2017-02-18 12:41] VITALS: BP 113/63; PULSE 98; TEMP 98.5
[2017-02-18] MEDS ORDERED: VITAMIN C500 MG PO (17:15)
[2017-02-18] MEDS ORDERED: COLACE 100100 MG/CAP PO (17:16)
[2017-02-18] MEDS ORDERED: LASIX 40MG TABL40 MG PO (17:16)
[2017-02-18] MEDS ORDERED: ZEBETA 5MG5 MG PO (17:17)
[2017-02-18] MEDS ORDERED: LOVENOX 4040 MG/0.4 SQ (17:17)
[2017-02-18] MEDS ORDERED: TUMS500 MG PO (17:18)
[2017-02-18] MEDS ORDERED: IPRATROPIUM BROM3 M1 IH ×2 (17:18→17:20)
[2017-02-18] MEDS ORDERED: MIRALAX PA17 GM/Dose PO (17:19)
[2017-02-18] MEDS ORDERED: DULCOLAX S10 MG/SUPP RC (17:19)
[2017-02-18] MEDS ORDERED: NORCO 325 MG-7.1 TAB PO (17:20)
[2017-02-18] MEDS ORDERED: FLUCONAZOL100 MG/51 IV (17:21)
[2017-02-18] MEDS ORDERED: ROCEPHIN 2GM VIAL21 IJ (17:22)
[2017-02-18] MEDS ORDERED: FLAGYL 500500 MG/100 IV (17:22)
[2017-02-18] MEDS ORDERED: PHENERGAN25 MG/ML IV (17:23)
[2017-02-18] MEDS ORDERED: NOVLOG (17:25)
[2017-02-18] MEDS ORDERED: IRON PO (17:27)
== END 2017-02-18 14:10 | DRG 329 ==
LOC: SURG 01-26 06:06 → INPTSU 01-26 06:06 → SURG 01-26 07:30 → ICU 01-29 18:15 → SURG 02-06 12:15
PROVIDERS: Internal Medicine Cardiovascular Disease; Internal Medicine Infectious Disease; Internal Medicine Pulmonary Disease; Surgery
PROC: 0DTF0ZZ Resection of Right Large Intestine, Open Approach (ICD-10-PCS; principal; 2017-01-26 08:00)
PROC: 5A1945Z Respiratory Ventilation, 24-96 Consecutive Hours (ICD-10-PCS; 2017-01-29)
PROC: 0BH17EZ Insertion of Endotracheal Airway into Trachea, Via Natural or Artificial Opening (ICD-10-PCS; 2017-01-29)
PROC: 0DBB0ZZ Excision of Ileum, Open Approach (ICD-10-PCS; 2017-01-29)
PROC: 0DBL0ZZ Excision of Transverse Colon, Open Approach (ICD-10-PCS; 2017-01-29 16:53)
PROC: 0BH17EZ Insertion of Endotracheal Airway into Trachea, Via Natural or Artificial Opening (ICD-10-PCS; 2017-02-01)
PROC: 5A1945Z Respiratory Ventilation, 24-96 Consecutive Hours (ICD-10-PCS; 2017-02-01)
PROC: 0B968ZZ Drainage of Right Lower Lobe Bronchus, Via Natural or Artificial Opening Endoscopic (ICD-10-PCS; 2017-02-02)
PROC: 0B958ZZ Drainage of Right Middle Lobe Bronchus, Via Natural or Artificial Opening Endoscopic (ICD-10-PCS; 2017-02-02)
PROC: 0B9B8ZZ Drainage of Left Lower Lobe Bronchus, Via Natural or Artificial Opening Endoscopic (ICD-10-PCS; 2017-02-02)
DX: D12.0 Benign neoplasm of cecum (principal); J96.01 Acute respiratory failure with hypoxia; A41.50 Gram-negative sepsis, unspecified; R65.21 Severe sepsis with septic shock; K65.0 Generalized (acute) peritonitis; J95.812 Postprocedural air leak; N17.9 Acute kidney failure, unspecified; E87.0 Hyperosmolality and hypernatremia; K91.3 Postprocedural intestinal obstruction; I47.1 Supraventricular tachycardia; J90 Pleural effusion, not elsewhere classified; E44.0 Moderate protein-calorie malnutrition; J98.11 Atelectasis; I25.10 Atherosclerotic heart disease of native coronary artery without angina pectoris; E11.65 Type 2 diabetes mellitus with hyperglycemia; I10 Essential (primary) hypertension; I27.2 Other secondary pulmonary hypertension; E87.6 Hypokalemia; D64.9 Anemia, unspecified; Z95.5 Presence of coronary angioplasty implant and graft; Z87.891 Personal history of nicotine dependence
CPT/HCPCS: A4217; A4315; A9284; B4178; C1751; C1894; J0330; J0360; J0610; J0694; J0696; J1100; J1160; J1170; J1200; J1450; J1644; J1650; J1720; J1815; J1885; J1940; J2060; J2185; J2250; J2270; J2370; J2405; J2550; J2704; J2710; J3010; J3370; J3475; J3480; J7040; J7050; J7060; J7120; J7131; P9047; Q9967

== ENCOUNTER 2017-02-18 14:09 | Inpatient (IN) | payer BC ==
[~2017-02-18] VITALS: Ht 167.6 cm; Wt 85.2 kg
[~2017-02-18 14:09] MED LIST changes: +ASPIRIN E.C. 8181 MG PO; +FLAX OIL1000 MG PO; +GLUCOPHAGE1000 MG PO; +GLUCOSAMINE & C1 CA1 PO; +LIPITOR 40MG TA40 MG PO; +MASON NATURAL100 MG PO; +MASON NATURAL1200 MG PO; +REVATIO20 MG PO; +VITAMIN D32000 IU PO
[2017-02-18 15:45] VITALS: BP 125/68; PULSE 100; TEMP 98.1
[2017-02-18] MEDS ORDERED: VITAMIN C500 MG PO (17:15)
[2017-02-18] MEDS ORDERED: LASIX 40MG TABL40 MG PO (17:16)
[2017-02-18] MEDS ORDERED: COLACE 100100 MG/CAP PO (17:16)
[2017-02-18] MEDS ORDERED: LOVENOX 4040 MG/0.4 SQ (17:17)
[2017-02-18] MEDS ORDERED: ZEBETA 5MG5 MG PO (17:17)
[2017-02-18] MEDS ORDERED: IPRATROPIUM BROM3 M1 IH ×2 (17:18→17:20)
[2017-02-18] MEDS ORDERED: TUMS500 MG PO (17:18)
[2017-02-18] MEDS ORDERED: DULCOLAX S10 MG/SUPP RC (17:19)
[2017-02-18] MEDS ORDERED: MIRALAX PA17 GM/Dose PO (17:19)
[2017-02-18] MEDS ORDERED: NORCO 325 MG-7.1 TAB PO (17:20)
[2017-02-18] MEDS ORDERED: FLUCONAZOL100 MG/51 IV (17:21)
[2017-02-18] MEDS ORDERED: FLAGYL 500500 MG/100 IV (17:22)
[2017-02-18] MEDS ORDERED: ROCEPHIN 2GM VIAL21 IJ (17:22)
[2017-02-18] MEDS ORDERED: PHENERGAN25 MG/ML IV (17:23)
[2017-02-18] MEDS ORDERED: NOVLOG (17:25)
[2017-02-18] MEDS ORDERED: IRON PO (17:27)
[2017-02-18 18:52] VITALS: BP 124/59; PULSE 104; TEMP 98.4
[2017-02-19 04:08] VITALS: BP 130/62; PULSE 108; TEMP 99.5
[2017-02-19 06:56] LABS: ALBUMIN 2.5 gm/dL (3.5-5.0); CALCIUM 7.9 mg/dL (8.4-10.2); CREATININE, serum 0.82 mg/dL (0.66-1.25); POTASSIUM 3.1 mmol/L (3.4-5.0)
[2017-02-19 07:12] LABS: PHOSPHOROUS 3.7 mg/dL (2.5-4.5)
[2017-02-19 17:29] VITALS: BP 128/58; PULSE 100; TEMP 98.5
[2017-02-20 06:00] VITALS: BP 143/72; PULSE 110; TEMP 98.9
[2017-02-20 07:34] LABS: ALBUMIN 2.6 gm/dL (3.5-5.0); CALCIUM 7.8 mg/dL (8.4-10.2); CREATININE, serum 0.78 mg/dL (0.66-1.25); PHOSPHOROUS 3.8 mg/dL (2.5-4.5)
[2017-02-20 17:41] VITALS: BP 125/70; PULSE 104; TEMP 98.5
[2017-02-21 04:38] VITALS: BP 115/70; PULSE 80; TEMP 98.3
[2017-02-21 08:33] LABS: ALBUMIN 2.6 gm/dL (3.5-5.0); CALCIUM 7.8 mg/dL (8.4-10.2); CREATININE, serum 0.71 mg/dL (0.66-1.25); PHOSPHOROUS 3.6 mg/dL (2.5-4.5); POTASSIUM 3.6 mmol/L (3.4-5.0)
[2017-02-21 16:28] VITALS: BP 119/66; PULSE 82; TEMP 97.4
[2017-02-22 03:42] VITALS: BP 130/74; PULSE 98; TEMP 98.2
[2017-02-22 07:21] LABS: MEAN CELL VOLUME 93 fl (80.0-100.0); MEAN CORPUSCULAR HGB CONC 32 g/dl (33.0-37.0); MEAN PLATELET VOLUME 9.5 fl (7.4-10.4); PLATELET COUNT 560 K/mm3 (130-400); RED BLOOD COUNT 2.52 M/mm3 (4.20-5.60); REDCELL DISTRIBUTION WIDTH-CV 14.1 % (11.5-14.5); WHITE BLOOD COUNT 16.8 K/mm3 (4.8-10.8)
[2017-02-22 07:30] LABS: HEMATOCRIT 23.3 % (42.0-52.0); HEMOGLOBIN 7.4 g/dl (13.5-18.0); MEAN CORPUSCULAR HEMOGLOBIN 29 pg (27.0-31.0)
[2017-02-22 07:31] LABS: ADD PATHOLOGY DIFF REVIEW NO
[2017-02-22 07:36] LABS: ALBUMIN 2.8 gm/dL (3.5-5.0); CREATININE, serum 0.74 mg/dL (0.66-1.25); MAGNESIUM 1.4 mg/dL (1.6-2.3); PHOSPHOROUS 4.3 mg/dL (2.5-4.5); POTASSIUM 3.6 mmol/L (3.4-5.0)
[2017-02-22 08:02] LABS: BAND 13 % (0-10); BASOPHIL 1 % (0-2); EOSINOPHIL 1 % (0-4); NEUTROPHILS 67 % (42.0-75.2); PLATELET ESTIMATE INCREASED (NORMAL); TOTAL CELLS COUNTED 100
[2017-02-22 17:54] VITALS: BP 120/65; PULSE 97; TEMP 98.9
[2017-02-23 04:18] VITALS: BP 129/70; PULSE 98; TEMP 98.6
[2017-02-23 08:00] LABS: ALBUMIN 2.9 gm/dL (3.5-5.0); CALCIUM 8.1 mg/dL (8.4-10.2); CREATININE, serum 0.75 mg/dL (0.66-1.25); POTASSIUM 3.7 mmol/L (3.4-5.0)
[2017-02-23 08:13] LABS: PHOSPHOROUS 4.5 mg/dL (2.5-4.5)
[2017-02-23 17:00] VITALS: BP 123/67; PULSE 96; TEMP 99.1
[2017-02-24 06:09] VITALS: BP 142/73; PULSE 106; TEMP 97.9
[2017-02-24 17:49] VITALS: BP 126/66; PULSE 100; TEMP 97.5
[2017-02-25 04:11] VITALS: BP 140/76; PULSE 107; TEMP 97.2
[2017-02-25] MEDS ORDERED: CIPRO 500MG TA500 MG PO (08:34)
[2017-02-25] MEDS ORDERED: FLAGYL500 MG PO (08:34)
[2017-02-25] MEDS ORDERED: FERROUS SU325 MG/TAB PO (08:35)
[2017-02-25] MEDS ORDERED: MAG-OX 400400 MG/TAB PO (08:37)
[2017-02-25] MEDS ORDERED: NORCO 325 MG-51 TAB PO (08:39)
[2017-02-25] MEDS ORDERED: GLUCOPHAGE500 MG/TAB PO (08:43)
[2017-02-25] MEDS ORDERED: LASIX 40MG TABL40 MG PO (08:48)
[2017-02-25 15:52] VITALS: BP 123/64; PULSE 92; TEMP 98.8
== END 2017-02-25 16:10 | disposition home or self-care (01) | DRG 91 ==
PROVIDERS: Internal Medicine; Internal Medicine Nephrology
DX: G72.81 Critical illness myopathy (principal); J96.01 Acute respiratory failure with hypoxia; A41.9 Sepsis, unspecified organism; R65.20 Severe sepsis without septic shock; K91.3 Postprocedural intestinal obstruction; N17.9 Acute kidney failure, unspecified; E44.0 Moderate protein-calorie malnutrition; J90 Pleural effusion, not elsewhere classified; Z93.3 Colostomy status; I10 Essential (primary) hypertension; I25.10 Atherosclerotic heart disease of native coronary artery without angina pectoris; D12.0 Benign neoplasm of cecum; Z95.5 Presence of coronary angioplasty implant and graft; F17.210 Nicotine dependence, cigarettes, uncomplicated; E87.6 Hypokalemia; E11.9 Type 2 diabetes mellitus without complications
CPT/HCPCS: 99223-AI; 99232-AI; 99239; J0696; J1450; J1644; J1650; J1815; J3475

== ENCOUNTER → 2017-02-26 | Outpatient (CLI) | payer BC ==
[~2017-02-26] MED LIST changes: +CIPRO 500MG TA500 MG PO; +COLACE 100100 MG/CAP PO; +DULCOLAX S10 MG/SUPP RC; +FERROUS SU325 MG/TAB PO; +FLAGYL 500500 MG/100 IV; +FLAGYL500 MG PO; +FLUCONAZOL100 MG/51 IV; +IPRATROPIUM BROM3 M1 IH; +IRON PO; +LASIX 40MG TABL40 MG PO; +LOVENOX 4040 MG/0.4 SQ; +MAG-OX 400400 MG/TAB PO; +MIRALAX PA17 GM/Dose PO; +NORCO 325 MG-51 TAB PO; +NORCO 325 MG-7.1 TAB PO; +NOVLOG; +PHENERGAN25 MG/ML IV; +ROCEPHIN 2GM VIAL21 IJ; +TUMS500 MG PO; +VITAMIN C500 MG PO; +ZEBETA 5MG5 MG PO
== END ==
LOC: WCC 09:29
DX: T81.31XA Disruption of external operation (surgical) wound, not elsewhere classified, initial encounter (principal); T81.4XXA Infection following a procedure, initial encounter; A49.02 Methicillin resistant Staphylococcus aureus infection, unspecified site

== ENCOUNTER → 2017-03-01 | Outpatient (CLI) | payer BC | LOC: WCC 10:10 | DX: T81.31XA Disruption of external operation (surgical) wound, not elsewhere classified, initial encounter (principal); T81.4XXA Infection following a procedure, initial encounter; B95.7 Other staphylococcus as the cause of diseases classified elsewhere; E66.9 Obesity, unspecified ==

== ENCOUNTER → 2017-03-03 | Outpatient (CLI) | payer BC | LOC: WCC 11:27 | DX: T81.31XA Disruption of external operation (surgical) wound, not elsewhere classified, initial encounter (principal) ==

== ENCOUNTER → 2017-03-05 | Outpatient (CLI) | payer BC | LOC: WCC 12:14 | DX: T81.31XA Disruption of external operation (surgical) wound, not elsewhere classified, initial encounter (principal) ==

== ENCOUNTER → 2017-03-08 | Outpatient (CLI) | payer BC | LOC: WCC 14:28 | DX: T81.31XA Disruption of external operation (surgical) wound, not elsewhere classified, initial encounter (principal) ==

== ENCOUNTER → 2017-03-10 | Outpatient (CLI) | payer BC | LOC: WCC 11:15 | DX: T81.31XA Disruption of external operation (surgical) wound, not elsewhere classified, initial encounter (principal) | CPT/HCPCS: 17717; 27516; A6207; A6212 ==

== ENCOUNTER → 2017-03-12 | Outpatient (CLI) | payer BC | LOC: WCC 08:25 | DX: T81.31XA Disruption of external operation (surgical) wound, not elsewhere classified, initial encounter (principal) | CPT/HCPCS: 16847; 17717; A6212 ==

== ENCOUNTER → 2017-03-17 | Outpatient (CLI) | payer BC | LOC: WCC 10:41 | DX: T81.4XXA Infection following a procedure, initial encounter (principal); A49.02 Methicillin resistant Staphylococcus aureus infection, unspecified site; T81.31XA Disruption of external operation (surgical) wound, not elsewhere classified, initial encounter | CPT/HCPCS: 13973; 17717; A6199; A6212; G0463 ==

== ENCOUNTER → 2017-03-19 | Outpatient (CLI) | payer BC | LOC: WCC 10:51 | DX: T81.31XA Disruption of external operation (surgical) wound, not elsewhere classified, initial encounter (principal) | CPT/HCPCS: 27516; A6207; G0463 ==

== ENCOUNTER → 2017-03-25 | Outpatient (CLI) | payer BC | LOC: WCC 09:18 | DX: T81.31XA Disruption of external operation (surgical) wound, not elsewhere classified, initial encounter (principal) | CPT/HCPCS: 27516; A6207; G0463 ==

== ENCOUNTER → 2017-04-01 | Outpatient (CLI) | payer BC | LOC: WCC 10:02 | DX: T81.31XA Disruption of external operation (surgical) wound, not elsewhere classified, initial encounter (principal) | CPT/HCPCS: 27516; A6207; G0463 ==

== ENCOUNTER → 2017-04-08 | Outpatient (CLI) | payer BC | LOC: WCC 09:25 | DX: T81.30XA Disruption of wound, unspecified, initial encounter (principal) | CPT/HCPCS: 27516; A6207; G0463 ==

== ENCOUNTER → 2017-04-15 | Outpatient (CLI) | payer BC | LOC: WCC 12:13 | DX: T81.31XA Disruption of external operation (surgical) wound, not elsewhere classified, initial encounter (principal) | CPT/HCPCS: 27516; A6207; G0463 ==

== ENCOUNTER → 2017-04-22 | Outpatient (CLI) | payer BC | LOC: WCC 08:13 | DX: T81.31XA Disruption of external operation (surgical) wound, not elsewhere classified, initial encounter (principal) | CPT/HCPCS: 27516; A6207; G0463 ==

== ENCOUNTER → 2017-05-05 | Outpatient (CLI) | payer BC | LOC: WCC 09:03 | DX: T81.31XA Disruption of external operation (surgical) wound, not elsewhere classified, initial encounter (principal) | CPT/HCPCS: 27516; A6207; G0463 ==

== ENCOUNTER → 2017-05-19 | Outpatient (CLI) | payer BC | LOC: WCC 05-17 09:24 | DX: T81.31XA Disruption of external operation (surgical) wound, not elsewhere classified, initial encounter (principal); E66.9 Obesity, unspecified | CPT/HCPCS: 17717; 27516; A6207; A6212; G0463 ==

== ENCOUNTER → 2017-05-26 | Outpatient (CLI) | payer BC | LOC: WCC 05-25 10:07 | DX: T81.4XXA Infection following a procedure, initial encounter (principal); A49.02 Methicillin resistant Staphylococcus aureus infection, unspecified site; T81.31XA Disruption of external operation (surgical) wound, not elsewhere classified, initial encounter | CPT/HCPCS: 27516; A6207; G0463 ==

== ENCOUNTER → 2017-06-17 | Outpatient (CLI) | payer BC | LOC: WCC 11:25 | DX: T81.31XA Disruption of external operation (surgical) wound, not elsewhere classified, initial encounter (principal); E66.9 Obesity, unspecified | CPT/HCPCS: 18867; A6209; G0463 ==

== ENCOUNTER 2018-09-02 09:44 | Inpatient (IN) | payer MEDICARE, BC ==
[~2018-09-02] VITALS: Ht 167.6 cm; Wt 99.7 kg
[2018-10-04] VITALS (572 sets, daily range): BP systolic 86–158; BP diastolic 54–77; PULSE 72–99; TEMP 97.7–99.2; O2SAT 91–100
[2018-10-04] MEDS ORDERED: FORT1000TA PO (06:49)
[2018-10-04] MEDS ORDERED: BYSTOLIC5 MG PO (06:49)
[2018-10-04] MEDS ORDERED: PRINIVIL2.5 MG PO (06:51)
[2018-10-04] MEDS ORDERED: MULTI VITAMINS1 TAB PO (06:52)
[2018-10-04] MEDS ORDERED: THE MEDICINE S200 M2 PO (06:53)
[2018-10-04] MEDS ORDERED: FLAXSEED OIL1000 MG PO (06:53)
[2018-10-04] MEDS ORDERED: MASON NATURAL2000 IU PO (06:54)
[2018-10-04] MEDS ORDERED: GLUCOSAMINE 1000 PO (06:54)
[2018-10-04] MEDS ORDERED: GLUCOTROL 5M5 MG/TAB PO (06:54)
[2018-10-04] MEDS ORDERED: OMEGA-31 SGL PO (06:55)
[2018-10-04] MEDS ORDERED: REVATIO20 MG PO (06:55)
[2018-10-04] MEDS ORDERED: PROBIOTIC FORMU1 CAP PO (06:55)
[2018-10-04 07:18] LABS: BASO % 0.4 % (0.0-2.0); EOS # 0.4 (0.0-0.7); EOS % 3.5 % (0-4.0); GRAN # 6.7 (1.4-6.5); GRAN % 59.5 % (42.2-75.2); HEMOGLOBIN 13.8 g/dl (13.5-18.0); LYMPH # 3.2 (1.2-3.4); LYMPH % 28.3 % (20.0-51.0); MEAN CELL VOLUME 87 fl (80.0-100.0); MEAN CORPUSCULAR HEMOGLOBIN 30 pg (27.0-31.0); MEAN CORPUSCULAR HGB CONC 35 g/dl (33.0-37.0); MEAN PLATELET VOLUME 9.6 fl (7.4-10.4); MONO # 0.9 (0.1-0.6); PLATELET COUNT 245 K/mm3 (130-400); RED BLOOD COUNT 4.62 M/mm3 (4.20-5.60); REDCELL DISTRIBUTION WIDTH-CV 13.2 % (11.5-14.5)
[2018-10-04 07:26] LABS: CALCIUM 9.6 mg/dL (8.4-10.2); CREATININE, serum 0.85 mg/dL (0.66-1.25); POTASSIUM 3.8 mmol/L (3.4-5.0)
--- NOTE | 2018-10-04 13:05 | NUR ---
CLARIFICATION FOR ASSESSMENT DOCUMENTATION. PATIENT IS CURRENTLY SEDATED AND PARALYZED, WHICH IS WHY HIS GCS IS SIGNIFICANTLY LOW. WILL CONTINUE TO MONITOR.
--- NOTE | 2018-10-04 13:15 | NUR ---
1300- PATIENT ARRIVES TO ICU ROOM 1 FROM OR. HE IS INTUBATED AND SEDATED. ASSESSMENT COMPLETED. 2 ZOHAIB DRAINS NOTED COMING OUT FROM UNDER ABDOMINAL BINDER. VS STABLE, BP 89/64. IVF SWITCHED TO PUMP TUBING AND STARTED AT 100 CC/HR, PER DR. CARREON ORDERS. PROPOFOL STARTED FOR SEDATION, PER VERBAL ORDER RECEIVED. PATIENT PLACED IN WRIST RESTRAINTS AND OG TUBE INSERTED.
--- NOTE | 2018-10-04 13:30 | NUR ---
, VIMAL, HERE AT THIS TIME. SHE IS UPDATED ON PLAN OF CARE. DYLLAN GARCIA RN, ALSO HERE TO PLACE PICC LINE
[2018-10-04 14:26] LABS: ARTERIAL BLD GAS O2 SATURATION 97.4 % (92-100); ARTERIAL BLD GAS TCO2 CT 22.5; ARTERIAL BLOOD GAS BASE EXCESS -4.3 (-2-2); ARTERIAL BLOOD GAS HCO3 21.2 meq/L (22-26); ARTERIAL BLOOD GAS PCO2 40.7 mmHg (35-45); ARTERIAL BLOOD GAS PO2 103.9 mmHg (80-100); ARTERIAL BLOOD GAS pH 7.34 (7.35-7.45)
--- NOTE | 2018-10-04 16:02 | NUR ---
PT EXTUBATED 5MIN AGO. PT TOLERATING WELL.
--- NOTE | 2018-10-04 16:49 | NUR ---
AT 1600 PATIENT IS EXTUBATED PER DR. CARREON ORDER. HE IS ON THE UNIT NOW. PATIENT EXTUBATED AND HAS NO ISSUES WITH BREATHING OR PAIN. HE IS ON ROOM AIR AFTER EXTUBATION. WILL CONTINUE TO MONITOR.
--- NOTE | 2018-10-04 19:09 | NUR ---
BEDSIDE REPORT GIVEN TO LISS HANNON. PATIENT SITTING UP IN BED WITH NO C/O'S. PLAN OF CARE DISCUSSED. CARE TURNED OVER AT THIS TIME
--- NOTE | 2018-10-04 19:10 | NUR ---
Bedside report received from LISS Vargas. Incisions and drains reviewed. Transfer of care at this time.
--- NOTE | 2018-10-04 20:00 | NUR ---
Assessment complete at this time. Patient resting in bed at this time. No complaints of pain or discomfort. Dressings and binder intact. No evidence of bleeding. Drains have minimal bloody drainage in them at this time. Patient's respirations are clear. Hypoactive bowel sounds. Will continue to monitor. Call light within reach.
[2018-10-05] VITALS (642 sets, daily range): BP systolic 105–133; BP diastolic 67–75; PULSE 81–95; TEMP 98.1–98.2; O2SAT 89–97
--- NOTE | 2018-10-05 | NUR ---
Assessment complete. Patient resting in bed. Continues to be pain free. ZOHAIB drains have minimal output at this time. Urine output has been good. Patient has no complaints or needs at this time. No changes in assessment. Patient placed back on CPAP for sleeping. VSS. Will continue to monitor. Call light within reach.
--- NOTE | 2018-10-05 00:50 | NUR ---
Patient placed on 2L bleed in through home CPAP.
--- NOTE | 2018-10-05 04:00 | NUR ---
Patient sleeping comfortably at this time. Patient is easily awakened. Assessment complete. No changes at this time. Drains continue to have moderate output. No current needs. Will continue to monitor. Call light within reach.
[2018-10-05 05:28] LABS: HEMATOCRIT 39.3 % (42.0-52.0); HEMOGLOBIN 13.1 g/dl (13.5-18.0); MEAN CELL VOLUME 89 fl (80.0-100.0); MEAN CORPUSCULAR HEMOGLOBIN 30 pg (27.0-31.0); MEAN CORPUSCULAR HGB CONC 33 g/dl (33.0-37.0); MEAN PLATELET VOLUME 9.6 fl (7.4-10.4); PLATELET COUNT 214 K/mm3 (130-400); RED BLOOD COUNT 4.42 M/mm3 (4.20-5.60)
[2018-10-05 05:37] LABS: CALCIUM 7.9 mg/dL (8.4-10.2); CREATININE, serum 1.03 mg/dL (0.66-1.25); MAGNESIUM 1.4 mg/dL (1.6-2.3); PHOSPHOROUS 3.3 mg/dL (2.5-4.5); POTASSIUM 4.4 mmol/L (3.4-5.0)
--- NOTE | 2018-10-05 07:12 | NUR ---
Bedside report given to LISS Beasley. Reviewed surgical sites and drains. Transfer of care at this time.
--- NOTE | 2018-10-05 08:30 | NUR ---
PICC intact right upper arm with sterile dressing change done with insertion site cleansed with chloraprep x 1, catheter pulled out to 1 cm for a total of 2 cm pulled back, skin prep, stat lock, and tegaderm applied. no signs or symptoms of IV complications noted. no concerns voiced. re-wrapped with sam to protect catheter.
--- NOTE | 2018-10-05 08:46 | NUR ---
Initial visit; Patient and his thanked Bus Escort for looking in on Kit and offering God's blessings.
--- NOTE | 2018-10-05 09:52 | NUR ---
CARINE met with patient and after clinical rounds. Patient live independently at home with his . His PCP is Dr Villalobos and he obtains prescriptions from [facility]. Patient uses CPAP at home but not other DME is reported and he does not use any home health services. Patient does not have a DPOA and is not interested in that at this time. reports patient should be able to move upstairs to the surgical floor today. CARINE does not anticipate any needs upon discharge.
--- NOTE | 2018-10-05 14:29 | NUR ---
PT RESTING AT THIS TIME. PT DENIES ANY NEEDS. AT BEDSIDE.
--- NOTE | 2018-10-05 15:55 | NUR ---
PT TRANSFERRED VIA WHEELCHAIR TO SURGICAL ROOM 343. PT'S BELONGINGS TRANSFERRED WITH PATIENT ALONG WITH EPIDURAL. IVF DISCONTINUED UPON TRANSFER LR BAG COMPLETE. AT BEDSIDE. ZOHAIB DRAINS AND REINA DRAINED PRIOR TO TRANSFER. CONTACT MADE WITH EDER LEIJA UPON TRANSFER.
--- NOTE | 2018-10-05 16:21 | NUR ---
Patient resting in recliner at this time, call light in reach and by his side. A&Ox4, just arrived from ICU at 1600 this evening. Received report from Gale RN @ ICU. He was admitted yesterday for a Hernia Repair and this was done by Dr. Colon. Patient then extubated and was sent to ICU, where he stayed over night. He is currently breathing fine. He has two ZOHAIB tubes draining properly. He has a large incision to his abdomen of which has ryan. Dressing is 4x4's, airstrip and secured with abdominal binder. Dr. Colon wants to have this kept in place until he looks at incision tomorrow. He has a PICC line to his Right upper arm, Peripheral line to the left hand both showing no signs of infection, such as redness or inflamation. Patient has a CPAP that he uses at HS. Epidural is in place. Blood sugars are Q6Hrs and last blood sugar was 129 at noon. Nurse reported that WBC were elevated, but Dr. Colon believed it was due to the surgery and was not concerned at this time. Pain 3/10 at this time and has Epidural in place. Will continue to monitor.
--- NOTE | 2018-10-05 21:20 | NUR ---
HS med reviewed and given. Patient resting back in bed. Declines snack. Requests to do own mcdaniel cares and reviewed/done by patient. Does HS care at bedside and denies further needs.
[2018-10-06] VITALS (7 sets, daily range): BP systolic 104–139; BP diastolic 51–75; PULSE 60–96; TEMP 98.2–98.7
--- NOTE | 2018-10-06 00:30 | NUR ---
Patient rests in bed awake. Reports abdominal pain dull 2/10 and improved from earlier. ZOHAIB drains emptied. See accu check. Declines repositioning at this time.
--- NOTE | 2018-10-06 02:24 | NUR ---
PATIENT HAS BEEN RESTING WITH EYES CLOSED. RESPIRATIONS WITH EASE. CPAP ON.
--- NOTE | 2018-10-06 05:57 | NUR ---
Patient reports pain level "much better". States yes to resting well this noc. ZOHAIB drains with scant light red drainage.
[2018-10-06 06:23] LABS: HEMATOCRIT 37.5 % (42.0-52.0); HEMOGLOBIN 12.5 g/dl (13.5-18.0); MEAN CELL VOLUME 90 fl (80.0-100.0); MEAN CORPUSCULAR HEMOGLOBIN 30 pg (27.0-31.0); MEAN CORPUSCULAR HGB CONC 33 g/dl (33.0-37.0); MEAN PLATELET VOLUME 9.4 fl (7.4-10.4); PLATELET COUNT 196 K/mm3 (130-400); RED BLOOD COUNT 4.19 M/mm3 (4.20-5.60); REDCELL DISTRIBUTION WIDTH-CV 14.3 % (11.5-14.5)
[2018-10-06 06:45] LABS: CALCIUM 8.3 mg/dL (8.4-10.2); CREATININE, serum 0.93 mg/dL (0.66-1.25); POTASSIUM 4.3 mmol/L (3.4-5.0)
[2018-10-06 07:06] LABS: LYMPHOCYTE 6 % (20.0-51.0); NEUTROPHILS 88 % (42.0-75.2); PLATELET ESTIMATE NORMAL (NORMAL)
--- NOTE | 2018-10-06 10:14 | NUR ---
Patient currently resting in recliner at this time, call light in reach and by his side. Patient reported that he was in alot of pain in upper abdomen last night and Anesthesia adjusted medications to help with this. Dr. Colon called this morning with an update the following was reported to him and he decided to leave the epidural pump in at this time. Patient is tolerating it well. Will continue to monitor. Patient took pills whole this morning with water and had no difficulty. Dr. Colon removed dressing to abdominal incision and said it was okay to leave incision open to the air, but okay to also put on an air strip. Patient requested that this nurse put on an air strip to prevent him from having any agitation from the Abdominal band. This nurse placed the air strip on the incision and applied drain sponges to bilateral ZOHAIB tubes with the ZOHAIB tube on the left draining from the site. Will continue to monitor.
--- NOTE | 2018-10-06 12:48 | NUR ---
First visit from the synoptic meteorologist. No needs right now.
--- NOTE | 2018-10-06 20:30 | NUR ---
Patient finished walking in hallway >150ft with . Sits up in recliner alert and oriented x 4. Reports minimal abdominal pain 2/10 and is passing some gas. Reports just utilizing basal rate of epidural. HS med along with benadryl, given for itching around edges of tegaderm dressing to Picc line. Reports has sensitive skin to adhesive. Will monitor. Airstrip and drain sponges to abdomin CDI.
--- NOTE | 2018-10-06 22:30 | NUR ---
HEAT CURER assisted patient to bed. Patient did HS cares at bedside and had glucerna for snack.
[2018-10-07 03:55] VITALS: BP 132/62; PULSE 88; TEMP 97.4
--- NOTE | 2018-10-07 05:31 | NUR ---
PATIENT STATES HE SLEPT WELL THROUGH THE NIGHT. REPORTS SOME PAIN TO SIDES OF RIBS WITH DEEP BREATHS/NOT UNCHANGED FROM PREVIOUS. ABDOMINAL BINDER AND ZOHAIB DRAINS CDI.
[2018-10-07 06:29] LABS: BASO # 0.1 (0.0-0.2); BASO % 0.4 % (0.0-2.0); EOS # 0.6 (0.0-0.7); EOS % 4.6 % (0-4.0); GRAN # 8.5 (1.4-6.5); GRAN % 63.8 % (42.2-75.2); HEMOGLOBIN 11.4 g/dl (13.5-18.0); LYMPH # 2.6 (1.2-3.4); LYMPH % 19.8 % (20.0-51.0); MEAN CELL VOLUME 90 fl (80.0-100.0); MEAN CORPUSCULAR HEMOGLOBIN 30 pg (27.0-31.0); MEAN CORPUSCULAR HGB CONC 33 g/dl (33.0-37.0); MEAN PLATELET VOLUME 9.7 fl (7.4-10.4); MONO # 1.5 (0.1-0.6); PLATELET COUNT 206 K/mm3 (130-400); RED BLOOD COUNT 3.85 M/mm3 (4.20-5.60); REDCELL DISTRIBUTION WIDTH-CV 13.9 % (11.5-14.5)
[2018-10-07 06:32] LABS: HEMATOCRIT 34.7 % (42.0-52.0)
[2018-10-07 06:43] LABS: CALCIUM 8.9 mg/dL (8.4-10.2); CREATININE, serum 0.96 mg/dL (0.66-1.25); POTASSIUM 4.1 mmol/L (3.4-5.0)
--- NOTE | 2018-10-07 07:00 | NUR ---
Report recieved from primary nurse Dolores. He has an PICC in the right upper arm. He has a catheter in place. His drains are compressed and flowing. He has an abdominal binder on now. His incision is covered by a dressing.
[2018-10-07 08:00] VITALS: BP 112/82; PULSE 90; TEMP 99.2
--- NOTE | 2018-10-07 08:20 | NUR ---
Dr Colon in to see patient
[2018-10-07] MEDS ORDERED: ROXICODONE 55 MG/TAB PO (08:26)
[2018-10-07] MEDS ORDERED: NEURONTIN100 MG/CAP PO (08:27)
--- NOTE | 2018-10-07 08:30 | NUR ---
sitting up in chair, states ambulated in claros with physical therapy and tolerated well
[2018-10-07 10:00] VITALS: TEMP 99.2
--- NOTE | 2018-10-07 10:00 | NUR ---
remains sitting up in chair, denies pain, epidural catheter discontinued with tip intact
--- NOTE | 2018-10-07 11:00 | NUR ---
ambulating in claros with physical therapy
[2018-10-07 12:00] VITALS: BP 122/65; PULSE 78; TEMP 98.3
--- NOTE | 2018-10-07 12:03 | NUR ---
called nurse to room stating he has a rash across his chest and abdomen, this area is red and has a few small blister type area, the patient states he has h ad problems in the past with breaking out from tape and that at home he usually wears a shirt under his binder, binder is off at this time and will have a shirt on under neath the binder from now on, also has a rash on right arm above PICC line
--- NOTE | 2018-10-07 12:08 | NUR ---
reviewed assessment completed by student nurse and in agreement with that assessment
--- NOTE | 2018-10-07 12:50 | NUR ---
Patient's catheter is removed at this tiem. He denies pain during the procedure. He tolerates the procedure well. His catheter was emptied before the procedue.
--- NOTE | 2018-10-07 12:54 | NUR ---
remains up in chair, rash remains the same and patient states it feels "cooler" now
--- NOTE | 2018-10-07 13:26 | NUR ---
Patient is handed of to LISS Bernal. He is up in his chair, family at his side. States his pain is a 3 out of 10. Denies wanting any medications.
--- NOTE | 2018-10-07 14:00 | NUR ---
up to bathroom independently and voided qs but did not use urinal, asked him to try and use urinal from now on, denies needs and remains at bedside
[2018-10-07 15:00] VITALS: BP 131/70; PULSE 80; TEMP 98.3
--- NOTE | 2018-10-07 16:45 | NUR ---
now beginning to c/o pain after being up and going to bathroom and back to bed, medicated with roxicodone 5mg
--- NOTE | 2018-10-07 17:00 | NUR ---
rash to abdomen and chest remains very red and feels hot and "firey", Dr Colon notified and order received
--- NOTE | 2018-10-07 18:56 | NUR ---
bedside shift report given to LISS Andrea
[2018-10-07 19:54] VITALS: BP 133/69; PULSE 87; TEMP 98.2
--- NOTE | 2018-10-07 20:24 | NUR ---
Pt resting comfortably in bed, shift assessments complete, left Pt bed in lowest position, call light in reach
[2018-10-08 00:52] VITALS: BP 145/76; PULSE 82; TEMP 98.3
[2018-10-08 04:03] VITALS: BP 124/67; PULSE 79; TEMP 98
--- NOTE | 2018-10-08 04:56 | NUR ---
Pt slept during the night, he used his CPAP while asleep, he had some C/O pain during the night and pain medications were given, his C/O pain was more related to the rash on his upper abdomen and chest area as a burning pain. VS have remained stable. Pt did ambulate in the hallway before turning in for the night, his gait was steady while ambulating.
--- NOTE | 2018-10-08 08:01 | NUR ---
Report from LISS Andrea. Pt awake in bed, airstrip to midline incision without shadowing. Luis ZOHAIB drains with sanguinous drainage, emptied by LISS Andrea at shift change, stures and gauze intact. Pt has rash to upper chest and around PICC site. SCDs off as pt ambulating claros with PT. A&O, pleasantly cooperative.
[2018-10-08 08:14] VITALS: BP 138/70; PULSE 80; TEMP 98.2
--- NOTE | 2018-10-08 12:12 | NUR ---
Pt transferred to bed prior to PICC removal by TITA Jauregui. Pt neftali well. Still in bed for removal of ZOHAIB drain #1 on left side: clipped suture, removed, held pressure, covered with gauze and tegaderm. Pt neftali well, minimal drainage. Pt to chair for lunch. SSI given. Sister and visiting. Gave both printed prescriptions to be filled prior to pt's pharm closing.
[2018-10-08 12:45] VITALS: BP 133/71; PULSE 72; TEMP 98
--- NOTE | 2018-10-08 14:38 | NUR ---
Printed pt health summary, discharge summary, and last dose home med list. Reviewed with pt, , and pt's sister. Printed prescriptions previously given to . Stressed importance of follow up appointment. Pt and had no questions or concerns about going home with ZOHAIB drain in place to right abd. Belongings gathered by pt/family. Stressed 20# weight limit. Dressings intact, declined changing old ZOHAIB site gauze with scant drainage prior to discharge. Pt had visitors waiting during discharge instructions, enc to call if any questions prior to being escourted out of hospital for ride home. Pt neftali breakfast and lunch well.
--- NOTE | 2018-10-08 15:18 | NUR ---
Pt walked out with JAMES Lundberg, and family
== END 2018-10-08 15:18 | disposition home or self-care (01) | DRG 355 ==
LOC: INPTSU 10-04 05:39 → SURG 10-04 07:30 → ICU 10-04 13:38 → SURG 10-05 16:00
PROVIDERS: Internal Medicine Critical Care Medicine; Nurse Practitioner Family; Physician Assistant; ADMIT Surgery
PROC: 0KNK0ZZ Release Right Abdomen Muscle, Open Approach (ICD-10-PCS; 2018-10-04)
PROC: 0WUF0JZ Supplement Abdominal Wall with Synthetic Substitute, Open Approach (ICD-10-PCS; principal; 2018-10-04 08:00)
PROC: 0KNL0ZZ Release Left Abdomen Muscle, Open Approach (ICD-10-PCS; 2018-10-04 08:00)
DX: K43.2 Incisional hernia without obstruction or gangrene (principal); E11.9 Type 2 diabetes mellitus without complications; I25.10 Atherosclerotic heart disease of native coronary artery without angina pectoris; Z95.5 Presence of coronary angioplasty implant and graft; I10 Essential (primary) hypertension; I25.2 Old myocardial infarction; Z88.0 Allergy status to penicillin; E83.42 Hypomagnesemia; I95.81 Postprocedural hypotension
CPT/HCPCS: 99222; 99231-AI; 99232-AI; A4314; C1751; C1781; C1894; C9113; J0690; J1650; J1815; J1885; J2250; J2405; J2704; J2710; J3010; J3475; J7030; J7120

== ENCOUNTER → 2019-12-20 | Outpatient (CLI) | payer MEDICARE, BC ==
[~2019-12-20] MED LIST changes: +FLAXSEED OIL1000 MG PO; +FORT1000TA PO; +GLUCOSAMINE 1000 PO; +GLUCOTROL 5M5 MG/TAB PO; +MASON NATURAL2000 IU PO; +MULTI VITAMINS1 TAB PO; +NEURONTIN100 MG/CAP PO; +OMEGA-31 SGL PO; +PRINIVIL2.5 MG PO; +PROBIOTIC FORMU1 CAP PO; +ROXICODONE 55 MG/TAB PO; +THE MEDICINE S200 M2 PO
== END ==
LOC: COL.LAB 15:26
DX: R19.7 Diarrhea, unspecified (principal)

== ENCOUNTER → 2020-01-07 | Outpatient (CLI) | payer MEDICARE, BC ==
[2020-01-07 23:39] LABS: CLOSTRIDIUM DIFF A/B NEG; CLOSTRIDIUM DIFF A/B INTERP No C.diff present
== END ==
LOC: ZCOL.LAB 22:29
PROVIDERS: Internal Medicine Gastroenterology
DX: R19.7 Diarrhea, unspecified (principal)

== ENCOUNTER → 2021-07-07 | Outpatient (CLI) | payer MEDICARE, BC | LOC: COL.RAD 07:01 | DX: R74.8 Abnormal levels of other serum enzymes (principal); Z90.49 Acquired absence of other specified parts of digestive tract ==